=== PATIENT | female | born 1985 | race Caucasian/White ===

== ENCOUNTER 2016-08-14 20:37 | Emergency (ER) | payer OTHER ==
[~2016-08-14 20:37] MED LIST: MEDROL DOSEPAK1 PAC PO; NAPROXEN500 MG PO
[2016-08-14] MEDS ORDERED: VITAFOL-ONE CA1 EACH PO (22:09)
[2016-08-14] MEDS ORDERED: FERRALET 90 TA1 EACH PO (22:10)
--- NOTE | 2016-08-14 22:23 | ED GI/GU/ABDOMINAL COMPLAINT ---
History of Present Illness General Chief Complaint: Female Urogenital Problems Stated Complaint: PT SENT OVER FROM CHILD CENTER Source: patient Exam Limitations: no limitations Allergies Coded Allergies: Sulfa (Sulfonamide Antibiotics) (UNKNOWN 08/14/16) Reconcile Medications Iron Carb,Gl/FA/B12/C/Docusate (Ferralet 90 Tablet) 90 MG-1 MG-12 MCG-120 MG-50 MG TABLET 1 TAB PO DAILY HEALTH SUPPLEMENT (Reported) Ondansetron (Zofran Odt) 4 MG TAB.RAPDIS 1 TAB SL TID PRN nausea Pnv#26/Iron Poly/FA/Dha (Vitafol-One Capsule) 29 MG IRON-1 MG-200 MG CAPSULE 1 CAP PO DAILY HEALTH SUPPLEMENT (Reported) Ranitidine (Ranitidine HCl) 150 MG TABLET 1 TAB PO BID Triage Note: 30 YEAR OLD FEMALE FROM [facility] CURRENTLY 36WKS 2DAYS . C/O N/V/D STARTED TODAY. PT OF DR. WATSON EVALUATED AT [facility] PER REPORT PT RECIEVED NS BOLUS X2, 4MG IV ZOFRAN, 0.25MG SC BRETIN ALTHOUGH PT WAS FOUND TO HAVE NO CONTRATIONS. FHT IN THE 150'S WITH GOOD VARIABLILITY. PT REPORTS HISTORY OF GASTRIC ULCER. PT DIRECTLY TO ROOM 20. REPORT PASSED TO LAYLA RUSSO. Triage Nurses Notes Reviewed? yes ? Y Is pt currently ? No HPI: This patient is a 30-year-old female who presented to the emergency department today sent down to the emergency department from the childbirth center for evaluation of abdominal pain. The patient reported that her abdominal pain began abruptly at approximately 4:30 this evening. She reported the pain is located primarily across her upper abdomen. She reported that it feels similar to the pain that she used to have when she had a gastric ulcer 6 years ago. The patient reported that she used to be on ranitidine. Her GI doctor was Dr. Castillo. The patient reported that there has been some pink tinge to the vomitus. Associated nausea. She denied any fevers or chills. She denied any vaginal bleeding, leakage of fluid, or vaginal discharge. The patient reported that she feels the baby moving normally. This patient was given Zofran and 2 L of fluid in the childbirth center. The baby was monitored and cleared with a strong heart rate. Dr. Godinez is covering for this patient's regular OB/ SEAT MAKER, Dr. Watson. He was on the suggested that she come to the emergency department. (CL ARAIZA PA-C) Vital Signs & Intake/Output Vital Signs & Intake/Output Vital Signs Date Time Temp Pulse Resp B/P Pulse O2 O2 Flow FiO2 Ox Delivery Rate 08/14 2331 97.9 84 18 103/62 96 Room Air 08/14 2210 98 Room Air 08/144 97.9 92 18 105/68 95 Room Air ED Intake and Output 08/15 0000 08/14 1200 Intake Total 1040 Output Total Balance 1040 Intake, IV 1000 Intake, Oral 40 Past History Travel History Traveled to [place] past 21 day No Medical History Any Pertinent Medical History? see below for history Neurological: NONE EENT: NONE Cardiovascular: NONE Respiratory: NONE Gastrointestinal: peptic ulcer disease Hepatic: NONE Renal: NONE Musculoskeletal: NONE Psychiatric: NONE Endocrine: NONE Blood Disorders: NONE Cancer(s): NONE Surgical History Surgical History: non-contributory Psychosocial History What is your primary language Hebrew Tobacco Use: Never used Family History Hx Contributory? No (CL ARAIZA PA-C) Review of Systems Review of Systems Constitutional: Reports: no symptoms. EENTM: Reports: no symptoms. Respiratory: Reports: no symptoms. Cardiovascular: Reports: no symptoms. GI: Reports: see HPI. Genitourinary: Reports: no symptoms. Musculoskeletal: Reports: no symptoms. Skin: Reports: no symptoms. Neurological/Psychological: Reports: no symptoms. All Other Systems: Reviewed and Negative (CL ARAIZA PA-C) Physical Exam Physical Exam Gastrointestinal: normal bowel sounds, soft, uterus palpable just below the xiphoid process. Tenderness to palpation in the left upper quadrant with no rebound or guarding. No organomegaly appreciated. Comments: Well-developed well-nourished person in mild distress HEENT: Normal EENT exam, head normocephalic, moist mucous membranes Pupils equally round and reactive to light. Neck: Supple, no lymphadenopathy, Back: Normal inspection. No CVA tenderness Cardiovascular: Regular rate and rhythm with no murmurs, rubs, or gallops Respiratory: Chest nontender. No respiratory distress. Breath sounds clear to auscultation bilaterally with no wheezes, rales, rhonchi Extremity: Normal and equal pulses Neuro: Alert oriented x3, cranial nerves II through XII grossly intact. Skin: No appreciable rash on exposed skin, skin is warm and dry. Psych: Mood and affect is normal Core Measures ACS in differential dx? No Severe Sepsis Present: No Septic Shock Present: No (JOSE G ALTMAN,CL) Progress Differential Diagnosis: AMI, appendicitis, biliary colic, bowel obstruction, colon cancer, cholecystitis, diverticulitis, ectopic , endometritis, gastritis, inflamm bowel dis, intrauterine , kidney stone, PID/ cervicitis, PUD/GERD, perforated viscous, threatened AB, UTI/pyelo Initial ED EKG: none Comments: 08/14/2016 10:28:32 PM: I spoke to Dr. Giron. He reported that when he heard what was going on, they thought that she may be having contractions. He reported that she was having some minor contractions that the gave her some medication to help relax the muscles. He reported that after that time she was feeling a little better, but then began to notice this other abdominal pain which she thinks is similar to prior gastric ulcer pain. He reported that he did see her while she was having a flare of the pain and noted that her uterus was not augusta during the pain. He reported that he had ordered some Tums for her but does not think that it was given. He reported that she had a normal nonreactive stress test and that the baby was in no distress. He is in agreement with the plan to have this patient given IV Tylenol and then sent home with a GI follow-up and a prescription for ranitidine which he reported is safe in . (JOSE G ALTMAN,CL) Plan of Care: Current Medications Sig/Danny Start time Last Medication Dose Stop Time Status Admin Famotidine 20 MG ONCE ONE 08/14 2299 CAN (Pepcid) 08/14 2301 Departure Departure Disposition: HOME OR SELF CARE Condition: Stable Clinical Impression Primary Impression: Abdominal pain affecting Referrals: BOBY QUINTERO,YANY Rehman (PCP/Family) AINSLEY QUINTERO,DANIA Timmons Additional Instructions: Take ranitidine as prescribed. You may continue to take [id number] Tylenol for pain. Please call to make a follow-up appointment tomorrow with your WHITE WASHER PILER. Please also call to make an appointment with the specialty plant supervisor whose information has been provided to you in this packet. Return for any worsening symptoms or concerns. Departure Forms: Customer Survey General Discharge Information Prescriptions: Current Visit Scripts Ranitidine (Ranitidine HCl) 1 TAB PO BID #28 TAB Ondansetron (Zofran Odt) 1 TAB SL TID PRN nausea #10 TAB (CL ARAIZA PA-C) PA/EYELET MACHINE OPERATOR Co-Sign Statement Statement: ED Attending supervision documentation- x I saw and evaluated the patient. I have also reviewed all the pertinent lab results and diagnostic results. I agree with the findings and the plan of care as documented in the PA's/EYELET MACHINE OPERATOR's documentation. [] I have reviewed the ED Record and agree with the PA's/EYELET MACHINE OPERATOR's documentation. [] Additions or exceptions (if any) to the PAs/EYELET MACHINE OPERATOR's note and plan are summarized below: [] (ANNEMARIE QUINTERO,JUNE)
[2016-08-14] MEDS ORDERED: RANITIDINE HCL150 MG PO (22:32)
[2016-08-14] MEDS ORDERED: ZOFRAN ODT4 M1 SL (22:36)
[2016-08-14 23:31] VITALS: BP 103/62
== END 2016-08-14 23:45 ==
LOC: ERH 20:37
DX: O26.93 Pregnancy related conditions, unspecified, third trimester (principal); R10.10 Upper abdominal pain, unspecified; Z3A.36 36 weeks gestation of pregnancy
CPT/HCPCS: 36415; 81001; 96360; 96361; 96372; 96374; 96375; G0463; J0131; J2405; J3105

== ENCOUNTER 2016-09-05 05:54 | Inpatient (IN) | payer OTHER ==
[~2016-09-05] VITALS: Ht 157.5 cm; Wt 60.3 kg
[~2016-09-05 05:54] MED LIST changes: +FERRALET 90 TA1 EACH PO; +RANITIDINE HCL150 MG PO; +VITAFOL-ONE CA1 EACH PO; +ZOFRAN ODT4 M1 SL
--- NOTE | 2016-09-05 09:21 | History & Physical ---
General Information and HPI MD Statement: I have seen and personally examined KANNAN GABRIEL and documented this H&P. The patient is a 30 year old female at [39] weeks and [0] days gestation who presented with a chief complaint of [breech presentation]. History of Present Illness: 30 yo EDC by U/S 09/10/16 at 39 weeks with breech presentation and failed external cephalic version admitted for primary c section. care significant for right peroneal muscle weakness seen, evaluated and treated by [facility] neurology. Allergies/Medications Allergies: Coded Allergies: Sulfa (Sulfonamide Antibiotics) (UNKNOWN 08/14/16) Home Med list Iron Carb,Gl/FA/B12/C/Docusate (Ferralet 90 Tablet) 90 MG-1 MG-12 MCG-120 MG-50 MG TABLET 1 TAB PO DAILY HEALTH SUPPLEMENT (Reported) Ondansetron (Zofran Odt) 4 MG TAB.RAPDIS 1 TAB SL TID PRN nausea Pnv#26/Iron Poly/FA/Dha (Vitafol-One Capsule) 29 MG IRON-1 MG-200 MG CAPSULE 1 CAP PO DAILY HEALTH SUPPLEMENT (Reported) Ranitidine (Ranitidine HCl) 150 MG TABLET 1 TAB PO BID Past History denitrator History : 2 Para: 1 Last Menstrual Period: NA Estimated Delivery Date: 09/10/16 Past denitrator History: non-contributory Medical History Neurological: NONE EENT: NONE Cardiovascular: NONE Respiratory: NONE Gastrointestinal: peptic ulcer disease Hepatic: NONE Renal: NONE Musculoskeletal: NONE Psychiatric: NONE Endocrine: NONE Blood Disorders: NONE Cancer(s): NONE Surgical History Pertinent Surgical History: non-contributory Past Family/Social History Psychosocial History Smoking Status: Current Everyday Smoker Review of Systems Review of Systems Constitutional: Reports: no symptoms. EENTM: Reports: no symptoms. Cardiovascular: Reports: no symptoms. Respiratory: Reports: no symptoms. GI: Reports: no symptoms. Genitourinary: Reports: no symptoms. Musculoskeletal: Reports: see HPI. Skin: Reports: no symptoms. Neurological/Psychological: Reports: no symptoms. Hematologic/Endocrine: Reports: no symptoms. Immunologic/Allergic: Reports: no symptoms. All Other Systems: Reviewed and Negative Exam & Diagnostic Data Last 24 Hrs of Vital Signs/I&O Intake & Output 09/05 1600 09/05 0800 09/05 0000 Intake Total Output Total Balance Patient 133 lb Weight Obstetric Exam Wgt Gained During : 20 Pelvimetry: gynecoid Dilation (cm): 0 Effacement (%): 0 Station: -2 Membranes: intact Fluid: unknown Fundal Height (cm): 38 Multiple Gestation? No Contractions: none #1 - FHR Baseline: 140 Category: 1 Estimated Weight: 6.5 Presentation: breech Patient for Induction? No Labs Blood Type & Rh: A pos Antibody Screen: neg Hct/Hgb & Platelets #1: 36/12 Hct/Hgb & Platelets #2: Rubella: imm VDRL #1: nr VDRL #2: nr HbsAg: nr HIV #1: neg HIV #2 neg 1 Hr P Group B Strep: neg Initial Ultrasound: wnl Anatomy Ultrasound: wnl Ultrasound for EFW: 6 Genetic Testing: negative Last 24 Hrs of Labs/Domingo: Microbiology 09/05 0705 URINE ROUT: Urine Culture - COLB ITS Data ITS Data Unobtainable at this time Assessment/Plan Assessment/Plan: 39 week breech presentation, failed version primary c section As Ranked By This Provider Problem List: 1. Breech presentation Core Measures/Miscellaneous Venous Thromboembolism VTE Risk Factors: /, Surgery VTE Contraindications: Active Bleeding VTE Prophylaxis Ordered Inpt: Mechanical (ALPS/TEDS) VTE Diagnosis: No Beta Chandrakant Is Beta Chandrakant a Home Med? No Antibiotics Is Patient on Antibiotics? Yes
--- NOTE | 2016-09-05 09:22 | Labor & Delivery Summary ---
Delivery Summary Section: Section: primary Indication: breech Placenta: Placenta: normal, 3 vessel, manual Anesthesia: spinal Baby's Weight: 6-10 Apgars - 1 Min: 9 Apgars - 5 Min: 9
[2016-09-05 23:17] VITALS: BP 105/71
[2016-09-06 09:19] LABS: ABSOLUTE BASOPHIL COUNT 0 /CUMM (0.0-0.2); ABSOLUTE EOSINOPHIL COUNT 0 /CUMM (0.0-0.7); ABSOLUTE GRANULOCYTE CT 10.9 /CUMM (1.4-6.5); ABSOLUTE LYMPH COUNT 2.4 /CUMM (1.2-3.4); ABSOLUTE MONOCYTE COUNT 0.5 /CUMM (0.10-0.60); BASOPHIL % 0.2 % (0.0-2.0); EOSINOPHIL % 0.3 % (0-5); GRANULOCYTE % 78.4 % (42.2-75.2); MEAN CORPUSCULAR HGB 34.3 PG (27.0-31.0); MEAN CORPUSCULAR HGB CONC 32.5 G/DL (33.0-37.0); MEAN CORPUSCULAR VOLUME 105.6 FL (81.0-99.0); MEAN PLATELET VOLUME 9.9 FL (7.4-10.4); PLATELET COUNT 161 /CUMM (130-400); RBC DISTRIBUTION WIDTH 15.1 % (11.5-14.5); RED BLOOD CELL CT 2.87 /CUMM (4.20-5.40)
[2016-09-06 09:23] LABS: HEMATOCRIT 30.3 % (37-47); WHITE BLOOD CELL COUNT 13.9 /CUMM (4.8-10.8)
--- NOTE | 2016-09-06 13:12 | PN- Post Delivery/GYN ---
Subjective Subjective: NO C/O Review of Systems: NEG Objective Last 24 Hrs of Vital Signs/I&O Vital Signs Date Time Temp Pulse Resp B/P Pulse O2 O2 Flow FiO2 Ox Delivery Rate 09/05 2317 105/71 Physical Exam: INCISION C/D/I EXT NT Assessment/Plan Assessment/Plan S/P C/S POD1 STABLE D/C LOBO ADVANCE DIET ICREASE ACTIVITY Problem List: 1. S/P section
--- NOTE | 2016-09-07 09:53 | PN- Post Delivery/GYN ---
Subjective Subjective: feeling better Review of Systems: flatus Objective Last 24 Hrs of Vital Signs/I&O vss Physical Exam: incision c/d/i ext nt Assessment/Plan Assessment/Plan s/p s/s pod2 stable cpm Problem List: 1. S/P section
[2016-09-07] MEDS ORDERED: SIMETHICONE80 M1 PO (09:56)
[2016-09-07] MEDS ORDERED: IBUPROFEN800 M1 PO (09:56)
[2016-09-07] MEDS ORDERED: PERCOCET 5-3251 EACH PO (09:56)
[2016-09-07] MEDS ORDERED: DOCUSATE SODIU100 M3 PO (09:56)
[2016-09-08] MEDS ORDERED: ONDANSETRON ODT4 M1 PO (08:46)
--- NOTE | 2016-09-15 17:22 | Operative Report ---
Operative/Inv Procedure Report Surgery Date: 09/05/16 Name of Procedure: Primary Pre-Operative Diagnosis: Breech presentation full-term regnancy Post-Operative Diagnosis: Same Estimated Blood Loss: 650 mL Surgeon/Quality Improvement Analyst: DEON SLOAN MD, MD Katherine Reese M.D. assistant manager Anesthesia: spinal Operative/Procedure Note Note: The patient was brought to the operating room and placed on the OR table in the sitting position where she underwent spinal anesthetic without complication. Venodyne boots were placed and activated. A López catheter was inserted and drained clear yellow urine. The patient's abdomen was then prepped and draped in the usual sterile fashion and tested. A Pfannenstiel skin incision was made with the scalpel and taken down to the layer of the fascia. The fascia was nicked in the midline and extended bilaterally. The rectus muscles were from the fascia. Rectus muscles were and peritoneal cavity was entered sharply. A bladder flap was created with the Metzenbaum scissors and this was placed behind a Howard bladder blade. A low transverse uterine incision was made with the scalpel and the cavity was entered bluntly with the end of the handle. This was extended bilaterally. A liveborn infant was delivered through the appropriate maneuvers from dl breech presentation. This was delivered to the statistical machine mechanic to determine weight and scores. The placenta was then removed spontaneously. The uterus was exteriorized and wiped clean with a wet lap sponge. The uterine incision was closed in 2 layers, the second imbricating the first of 0 Polysorb. The abdomen and pelvis were copiously irrigated. The uterus was placed back into the abdominal cavity and the suture line was once again visualized and noted to be hemostatic. The fascia was closed using 0 Polysorb in a running nonlocking fashion. Dwight were closed on the skin and dry sterile dressing was applied to the wound the fundus was expressed the patient was transferred to the recovery room in satisfactory condition. All needle, sponge, and instrument counts were correct at the end of the procedure 2.
--- NOTE | 2016-09-18 11:40 | Surgical Discharge Summary ---
Visit Information Visit Dates Admission Date: 09/05/16 Discharge Date: 09/08/16 History of Present Illness Chief Complaint: Breech Medical History Neurological: NONE EENT: NONE Cardiovascular: NONE Respiratory: NONE Gastrointestinal: peptic ulcer disease Hepatic: NONE Renal: NONE Musculoskeletal: NONE Psychiatric: NONE Endocrine: NONE Blood Disorders: NONE Cancer(s): NONE Isolation History: Standard Surgical History Pertinent Surgical History: non-contributory Psychosocial History What is Your Primary Language? Greenlandic Review of Systems: 13 point review of systems as stated in the [facility] Hospital Course Course Attending Physician: DEON SLOAN MD Primary Care Physician: YANY LANDIS MD Hospital Course: Patient was admitted for a primary low flap transverse section secondary to breech the patient underwent her section she did very well she was discharged home on third postoperative day she tolerated clear liquid diet first postoperative day tolerating regular diet on second postoperative day she bonded well with her she tolerated oral pain medication she urinated freely without these were López Allergies: Coded Allergies: Sulfa (Sulfonamide Antibiotics) (UNKNOWN 08/14/16) Disposition Summary Disposition Principal Diagnosis: As post primary low flap transverse section Additional Diagnosis: Anemia Discharge Disposition: home or self care Discharge Instructions General Discharge Information Code Status: Full Code Patient's Diet: Regular Patient's Activity: Thing in the vagina for 6 weeks Follow-Up Instructions/Appts: Rest no heavy lifting greater than 15 pounds nothing the vagina for 6 weeks no driving for 2 weeks my office 2 weeks return visit 1 week for removal of marion Medications at Discharge Discharge Medications: Continue taking these medications: Pnv#26/Iron Poly/FA/Dha (Vitafol-One Capsule) 29 MG IRON-1 MG-200 MG CAPSULE 1 Capsule ORAL DAILY Qty = 30 Iron Carb,Gl/FA/B12/C/Docusate (Ferralet 90 Tablet) 90 MG-1 MG-12 MCG-120 MG-50 MG TABLET 1 Tablet ORAL DAILY Qty = 30 Ranitidine (Ranitidine HCl) 150 MG TABLET 1 Tablet ORAL TWICE DAILY Qty = 28 Ondansetron (Zofran Odt) 4 MG TAB.RAPDIS 1 Tablet SUBLINGUAL THREE TIMES DAILY as needed for nausea Qty = 10 Start taking the following new medications: Ibuprofen (Ibuprofen) 800 MG TABLET 800 Milligram ORAL EVERY SIX HOURS NEEDED as needed for UTERINE CRAMPING Qty = 36 No Refills Comments: Last Taken: 09/08/16 Time: 6:30 am Oxycodone HCl/Acetaminophen (Percocet 5-325 MG Tablet) 5 MG-325 MG TABLET 1-2 Tablet ORAL EVERY 4 HOURS NEEDED as needed for PAIN SCALE 4-6 ( MODERATE) Qty = 24 No Refills Comments: Last Taken: 09/08/16 Time: 6:30 am Simethicone (Simethicone) 80 MG TAB.CHEW 80 Milligram ORAL EVERY SIX HOURS NEEDED as needed for GAS Qty = 21 No Refills Docusate Sodium (Docusate Sodium) 100 MG CAPSULE 100 Milligram ORAL AT BEDTIME as needed for STOOL SOFTENER Qty = 60 No Refills Ondansetron (Ondansetron Odt) 4 MG TAB.RAPDIS 4 Milligram ORAL EVERY 6 HOURS NEEDED as needed for NAUSEA/VOMITING Qty = 16 No Refills
== END 2016-09-08 11:15 | DRG 540 ==
LOC: GNO 05:54
PROVIDERS: Obstetrics & Gynecology; ADMIT Specialist
PROC: 10D00Z1 Extraction of Products of Conception, Low, Open Approach (ICD-10-PCS; principal; 2016-09-05)
DX: O32.1XX0 Maternal care for breech presentation, not applicable or unspecified (principal); Z3A.39 39 weeks gestation of pregnancy; Z37.0 Single live birth; F17.210 Nicotine dependence, cigarettes, uncomplicated
CPT/HCPCS: GNOS; 36415; 81003; 87086; J0131; J0690; J1170; J1885; J2550; J3101; J7120